=== PATIENT | female | born 1955 | race Caucasian/White ===

== ENCOUNTER → 2017-01-03 | Outpatient (CLI) | payer BC ==
[~2017-01-03] MED LIST: APRESOLINE50 MG PO; ATIVAN 0.5MG0.5 MG PO; DAILY VALUE1 EACH PO; ECOTRIN325 MG PO; FLONASE 50 MCG/16 GM NOSE; K-TAB ER20 MEQ PO; LEXAPRO10 MG PO; LIPITOR40 MG PO; LISINOPRIL1 GM; NORVASC2.5 MG PO; PRINIVIL (ZESTRI5 MG PO; RYTHMOL225 M1 PO; TYLENOL EXTRA500 MG PO
== END | disposition disaster alternative care site (69) ==
LOC: GRAD 10:47
DX: E04.2 Nontoxic multinodular goiter (principal)